=== PATIENT | male | born 1970 | race Caucasian/White ===

== ENCOUNTER 2021-01-20 15:09 | Outpatient (CLI) | payer BC | END 2021-01-20 15:10 | disposition home or self-care (01) | LOC: NAV RAD 15:09 | PROVIDERS: ATTEND Nurse Practitioner Adult Health | DX: R10.9 Unspecified abdominal pain (principal); K80.20 Calculus of gallbladder without cholecystitis without obstruction | CPT/HCPCS: 74176 ==